=== PATIENT | male | born 1975 | race Caucasian/White ===

== ENCOUNTER 2017-01-10 07:53 | Day surgery (SDC) | payer BC ==
[2017-01-09 13:34] VITALS: BMI 41.8
[2017-01-10 08:35] LABS: URINE APPEARANCE CLEAR; URINE BILIRUBIN NEGATIVE (NEGATIVE); URINE BLOOD NEGATIVE (NEGATIVE); URINE COLOR LTYELLOW; URINE GLUCOSE (UA) NEGATIVE (NEGATIVE); URINE KETONE NEGATIVE (NEGATIVE); URINE LEUK ESTERASE NEGATIVE (NEGATIVE); URINE NITRITE NEGATIVE (NEGATIVE); URINE PROTEIN NEGATIVE (NEGATIVE); URINE UROBILINOGEN NEGATIVE E.U./dl (0.2-1.0)
--- NOTE | 2017-01-10 09:35 | HP ---
Satellite [facility] - Chief Complaint Chief Complaint: left hand mass - Past Medical History Allergies/Adverse Reactions: Allergies Allergy/AdvReac Type Severity Reaction Status Date / Time No Known Allergies Allergy Verified 01/10/17 08:43 - Current Medications Current Medications: Home Medications Medication Instructions Recorded Albuterol Sulfate Inhaler - 1 - 2 inh PO QID 01/09/17 [Ventolin HFA Inhaler -] Cetirizine HCl [Zyrtec -] 10 mg PO DAILY 01/09/17 Febuxostat [Uloric -] 80 mg PO DAILY 01/09/17 Lesinurad [Zurampic] 200 mg PO DAILY 01/09/17 Hudson-3 Acid Ethyl Esters [Lovaza] 2 gm PO DAILY 01/09/17 Pravastatin Sodium 20 mg PO HS 01/09/17 Valsartan [Diovan] 160 mg PO DAILY 01/09/17 Hydrocodone/Acetaminophen [[place]omb 1 each PO Q6H #20 tablet MDD 4 01/10/17 5-325 Tablet] Satellite Physical Exam - Physical Examination Vital Signs: Vital Signs Period Temp Pulse Resp BP Sys/Falcon Pulse Ox Last 24 Hr 97.9 F 79 18 131/82 97 General Appearance: Well Nourished, Well Developed, Alert & Oriented x3 ENT: Clear Lung: Normal air movement Heart: Regular rate & rhythm Extremities: Other (left hand- + mass, + ttp, nvi) Neurological: Intact, Alert, Oriented Satellite Impression/Plan - Impression/Plan Impression: left hand mass Operative Procedure: left hand mass excision Date to be Performed: 01/10/17
[2017-01-10] MEDS ORDERED: BUPIVACAINE HCL/PF 0.5% (5MG/ML) 10 ML VIAL ONE (09:39)
[2017-01-10] MEDS ORDERED: PROPOFOL 20 ML ONE (09:41)
[2017-01-10] MEDS ORDERED: MIDAZOLAM HCL 2 MG/2 ML SINGLE DOSE VIAL ONE (09:41)
[2017-01-10] MEDS ORDERED: LIDOCAINE HCL/PF 2% SDV 5ML VIAL ONE (09:42)
[2017-01-10] MEDS ORDERED: ceFAZolin SODIUM 1 GM VIAL ONE (09:54)
[2017-01-10] MEDS ORDERED: SODIUM CHLORIDE 0.9% P/F 10 ML VIAL IJ ONE (09:54)
[2017-01-10] MEDS ORDERED: ceFAZolin SODIUM 1 GM VIAL IVPB ONE (09:57)
[2017-01-10] MEDS ORDERED: LIDOCAINE HCL 1%, 10 MG/ML (20ML VIAL) IJ ONE (10:20)
[2017-01-10] MEDS ORDERED: BUPIVACAINE HCL/PF 0.5% (5MG/ML) 10 ML VIAL IJ ONE (10:20)
[2017-01-10] MEDS ORDERED: ONDANSETRON 4 MG/2 ML VIAL IVPUSH PRN (10:31)
[2017-01-10] MEDS ORDERED: PROMETHAZINE HCL 25 MG/1 ML VIAL IVPUSH PRN (10:31)
--- NOTE | 2017-01-10 10:32 | OP ---
Operative Note - Note: Operative Date: 01/10/17 Pre-Operative Diagnosis: left hand mass Operation: excision mass left hand Post-Operative Diagnosis: Same as Pre-op Surgeon: Grover Hong Anesthesiologist/PLASTIC PANEL INSTALLER: Benjamin Cano Anesthesia: General, Local Specimens Removed: mass left hand Estimated Blood Loss (mls): 0 Blood Volume Replaced (mls): 0 Fluid Volume Replaced (mls): 500 Operative Report Dictated: Yes
[2017-01-10] MEDS ORDERED: LACTATED RINGERS SOLUTION 1,000 ML IV SCH (10:45)
[2017-01-10 11:23] VITALS: TEMP 97.9
[2017-01-10 14:34] VITALS: BP 130/70; PULSE 80
--- NOTE | 2017-01-11 10:29 | OP ---
DATE OF OPERATION: 01/10/2017 PREOPERATIVE DIAGNOSIS: Mass, left hand. POSTOPERATIVE DIAGNOSIS: Mass, left hand. PROCEDURE: Excision mass, left hand. SURGEON: Grover Robbins MD DELIVERY CONSULTANT: None. ANESTHESIOLOGIST: Benjamin Cano MD ANESTHESIA: MAC anesthesia, local injection of 12 mL of 0.5% Marcaine with 1% lidocaine mixed. DRAINS: None. COMPLICATIONS: None. SPECIMENS: Mass, left hand. BLOOD LOSS: None. BLOOD GIVEN: None. FLUID REPLACEMENT: PlasmaLyte, 500 mL. INDICATIONS: This patient is a 41-year-old male with a preoperative diagnosis of a mass in his left hand. After understanding the potential risks, complications, alternatives, and benefits of surgical versus nonsurgical treatment, the patient elected to undergo this procedure. DESCRIPTION OF PROCEDURE: Patient was brought to the operating room. Peripheral IV was placed, IV sedation was given. One gram of IV Ancef was given. MAC anesthesia was induced. Left upper extremity was prepped and draped in sterile fashion. It was elevated and exsanguinated with an Esmarch bandage, and the tourniquet inflated to 250mm of mercury. A longitudinal incision was marked out with a marking pen. Marcaine, 12 mL of 0.5%, and 1% lidocaine mix was injected in and around the surgical incision. The incision was made with a No. 15 scalpel blade. Subcutaneous hemostasis was achieved with the bipolar cautery. Careful circumferential dissection was done with curved blunt-tipped Littler scissors around a dark purple/blood colored mass. It was about 8 mm x 8 mm, spherical, well-circumscribed. It did not invade the local tissue. There is nothing about it that looked malignant. It was from the crossing neurovascular structures. It was in the middle of the web space and frankly was far from any digital nerves. It was passed off the field as specimen, left hand mass. The area was copiously irrigated and washed out. I was not able to feel or see any abnormal tissue. The deep dermal layer was closed with 4-0 undyed Vicryl. Final skin reapproximation was done with a running subcuticular 4-0 Biosyn stitch. The area was then washed and dried, covered with Steri-Strips, 4x4s, fluffs between the fingers, Webril, and Coban. The tourniquet was taken down after a total tourniquet time of about 12 minutes. There were no complications during the case. The patient tolerated the procedure quite well and was brought to the ambulatory recovery room in stable condition. GROVER ROBBINS M.D. [id number]
--- NOTE | 2017-01-11 16:40 | PATH ---
Surgical Pathology Report Patient Name: BERTA JOHNSON Med. Rec. #: [id number] /Age/Gender: 1975 (Age: 41) / M Account: [id number] Location: [facility] Taken: 01/10/2017 Received: 01/10/2017 Reported: 01/11/2017 Physicians: Grover Hong M.D. Specimen(s) Received MASS OF LEFT HAND Clinical History Left hand mass Final Diagnosis SOFT TISSUE, LEFT HAND, MASS, EXCISION: THROMBOSED DILATED BLOOD VESSEL WITH ORGANIZING THROMBUS. Electronically Signed Minh Carrasco M.D. Gross Description Received in formalin labeled "left hand mass" is a 0.7 x 0.6 x 0.5 cm brown, encapsulated, intact mass. Sectioning reveals red-brown blood clot. The specimen is bisected and entirely submitted in one cassette. /01/10/201701/10/2017
== END 2017-01-10 12:30 | disposition home or self-care (01) ==
LOC: JASU-SURG 07:53
PROVIDERS: ATTEND Orthopaedic Surgery
PROC: 0JBK0ZZ Excision of Left Hand Subcutaneous Tissue and Fascia, Open Approach (ICD-10-PCS; principal; 2017-01-10 09:30)
DX: D21.12 Benign neoplasm of connective and other soft tissue of left upper limb, including shoulder (principal)
CPT/HCPCS: 81003; 88307-TC; 94760

== ENCOUNTER 2017-01-31 09:11 | Inpatient (IN) | payer BC ==
[2017-01-30 11:07] VITALS: BMI 41.8
[2017-01-31 09:36] LABS: URINE APPEARANCE CLEAR; URINE BILIRUBIN NEGATIVE (NEGATIVE); URINE BLOOD NEGATIVE (NEGATIVE); URINE COLOR LTYELLOW; URINE GLUCOSE (UA) NEGATIVE (NEGATIVE); URINE KETONE TRACE (NEGATIVE); URINE LEUK ESTERASE NEGATIVE (NEGATIVE); URINE NITRITE NEGATIVE (NEGATIVE); URINE PROTEIN NEGATIVE (NEGATIVE); URINE UROBILINOGEN NEGATIVE E.U./dl (0.2-1.0)
[2017-01-31] MEDS ORDERED: LIDOCAINE HCL/PF 2% SDV 5ML VIAL ONE (12:56)
[2017-01-31] MEDS ORDERED: ceFAZolin SODIUM 1 GM VIAL ONE (12:56)
[2017-01-31] MEDS ORDERED: DEXAMETHASONE SOD PHOSPHATE 4 MG/1 ML VIAL ONE (12:56)
[2017-01-31] MEDS ORDERED: KETOROLAC TROMETHAMINE 30 MG/1 ML VIAL ONE (12:56)
[2017-01-31] MEDS ORDERED: PROPOFOL 20 ML ONE ×2 (12:57→12:59)
[2017-01-31] MEDS ORDERED: SUCCINYLCHOLINE CHLORIDE 200 MG/10 ML VIAL ONE (12:57)
[2017-01-31] MEDS ORDERED: ROCURONIUM BROMIDE 50 MG/5 ML VIAL ONE (12:57)
[2017-01-31] MEDS ORDERED: ceFAZolin SODIUM 1 GM VIAL IVPB ONE (13:03)
[2017-01-31] MEDS ORDERED: NEOSTIGMINE METHYLSULFATE 0.5 MG/ML - 10 ML MDV ONE (14:26)
[2017-01-31] MEDS ORDERED: GLYCOPYRROLATE 0.2 MG/1 ML VIAL ONE ×2 (14:26)
[2017-01-31] MEDS ORDERED: BUPIVACAINE HCL/PF 0.5% (5MG/ML) 10 ML VIAL IJ ONE (14:29)
[2017-01-31] MEDS ORDERED: MIDAZOLAM HCL 2 MG/2 ML SINGLE DOSE VIAL ONE (14:43)
[2017-01-31] MEDS ORDERED: ONDANSETRON 4 MG/2 ML VIAL IVPB PRN (14:48)
[2017-01-31] MEDS ORDERED: ONDANSETRON 4 MG/2 ML VIAL IVPUSH PRN (14:49)
[2017-01-31] MEDS ORDERED: PROMETHAZINE HCL 25 MG/1 ML VIAL IVPUSH PRN (14:49)
[2017-01-31] MEDS ORDERED: oxyCODONE HCL 5 MG TABLET PO PRN (14:49)
[2017-01-31] MEDS ORDERED: METOCLOPRAMIDE HCL INJECTION 10 MG/2 ML VIAL IVPB PRN (14:50)
[2017-01-31] MEDS ORDERED: SODIUM CHLORIDE 1,000 ML IV SCH (15:00)
--- NOTE | 2017-01-31 15:08 | HP ---
DATE OF ADMISSION: 01/31/2017 CHIEF COMPLAINT: Morbid obesity. HISTORY OF PRESENT ILLNESS: This gentleman is a 41-year-old gentleman with a history of morbid obesity for many years despite multiple attempts at dietary weight loss. He received nutrition, psychological, and medical clearances prior to undergoing elective laparoscopic sleeve gastrectomy surgery. PAST MEDICAL HISTORY: Significant for hypertension, significant for hypercholesterolemia, and also for gout. PRIOR SURGICAL HISTORY: Includes removal of a cyst in his hand and also oral surgery. ALLERGIES: The patient has no known allergies. MEDICATIONS: Include Diovan. It includes pravastatin. It includes Zyrtec and Lovaza. REVIEW OF SYMPTOMS: Neurologic: Patient's neurologic symptoms within normal limits. Gastrointestinal: No heartburn. No nausea and vomiting. Pulmonary: No wheezing. No shortness of breath. Cardiovascular: Within normal limits. Musculoskeletal: Within normal limits. PHYSICAL EXAMINATION: General: Awake, alert. No acute distress. HEENT: No masses palpated. Lungs: Clear bilaterally. Heart: Regular sinus rhythm. Abdomen: Noted for obesity but soft, nontender on palpation. Extremities: No edema. No decreased range of motion noted. LABORATORY VALUES: Essentially normal except for elevated liver function tests preoperatively which include the SGPT being 84 with normal 10-49 and AST being 52 with normal 17-34. IMPRESSION: 1. Morbid obesity. 2. Elevated liver function tests. 3. Hypertension. PLAN: The OR for laparoscopic vertical sleeve gastrectomy. SHANAE PINA M.D. [id number]
--- NOTE | 2017-01-31 15:21 | OP ---
DATE OF OPERATION: 01/31/2017 PREOPERATIVE DIAGNOSES: 1. Morbid obesity. 2. Elevated liver function tests. 3. Hypertension. POSTOPERATIVE DIAGNOSES: 1. Morbid obesity. 2. Elevated liver function tests. 3. Hypertension. 4. Hepatomegaly. PROCEDURE PERFORMED: 1. Laparoscopic vertical sleeve gastrectomy. 2. Wedge biopsy of the left lobe of liver. 3. Diagnostic laparoscopy. OPERATING SURGEON: Gagan Pino MD DIRECTOR OF EXHIBITS: Braydon Sigala MD ANESTHESIA: General. EXPECTED BLOOD LOSS: 30 mL DISPOSITION: Patient transferred to recovery room in stable condition. OPERATIVE PROCEDURE: The patient was brought into the operating room and placed on the OR table in the supine position. All precautions were taken initially including padding for the back and the feet, and Venodyne boots were placed on both lower extremities. At that point, the abdomen was prepped and draped in the usual manner. A Veress needle was placed in the left upper quadrant, and a pneumoperitoneum was established. A number-12 bladeless trocar was placed in the left upper quadrant. Through that trocar, a laparoscopic camera was placed. Under direct vision, a number-15 bladeless trocar was placed in the midline in a supraumbilical position, followed by a number-5 bladeless trocar in the right upper quadrant and number-5 bladeless trocar below the left costal margin. A Mary liver retractor was then placed in the epigastrium to retract the left lobe of the liver. The left lobe was extremely enlarged, and combined with the patient's elevated liver function tests, it was decided that a wedge biopsy would be performed. With the electrocautery turned high, the electrocautery was then used to score the liver capsule on the edge of the inferior portion of the left lobe of the liver. Once the capsule was scored, dissection continued through the parenchyma and in the portion of the lobe which was the wedge biopsy was then removed from the liver and sent off the field to Pathology as a specimen. There was some minor bleeding from the parenchyma of the liver which was easily controlled with electrocautery. Attention was now directed to the distal stomach where the pylorus was found. Next, 6 cm were measured from this area proximally, and here, on the greater curve, the operating surgeon lifted the stomach toward the anterior abdominal wall as the assistant brand manager surgeon retracted the gastrocolic ligament inferiorly. The LigaSure device was used to dissect the gastrocolic ligament off the greater curve of the stomach. This continued in a superior and vertical direction as the assistant brand manager continued to retract the gastrocolic and then the omentum away from the stomach as the operating surgeon used the LigaSure to dissect the vessels. This continued until the final short gastric vessel between the superior pole of the spleen and the proximal fundus was divided. At this juncture, Anesthesia passed a number 40 bougie. With the bougie held along the lesser curvature, a series of allan were performed with the first two being black-load allan 6 cm in length along the bougie. This was followed by a series of purple-load allan that continued along the bougie until a final staple was fired in the left upper quadrant, and the greater curve was now completely detached from the lesser curve. It should be noted that prior to firing each stapler, both the anterior and posterior joaquin were checked that they were equal and also an area of the esophagogastric junction approximately 1 cm of serosa remained on the anterior and posterior surfaces. At this juncture, saline was placed around the staple line, and Anesthesia inserted air into the bougie, which showed the entire stomach distended to the pylorus. No obstruction and no leaks were noted. At this point, the resected greater curve was removed through the No. 15 trocar site in the midline, sent off the field as a specimen to Pathology. Under direct vision, the No. 15 and 12 trocar sites were closed with Endoclose device to prevent internal hernia and prevent bleeding. Under direct vision, all trocars were removed. The pneumoperitoneum was released. All trocar sites then received 0.25% Marcaine, were closed with 4-0 Biosyn in subcuticular fashion. Dressings were applied. Patient awoke from anesthesia and transferred out of the operating room to the recovery room in stable condition. Scott [id number]
[2017-01-31 15:44] LABS: MCH 28.9 pg (25.7-33.7); MCHC 33.1 g/dl (32.0-35.9); MEAN CELL VOLUME 87.3 fl (80-96); MEAN PLT VOLUME 9.8 fl (7.5-11.1); PLATELET COUNT 162 K/MM3 (134-434); RDW 13.5 % (11.9-15.9); WHITE BLOOD COUNT 8.7 K/mm3 (4.0-10.0)
[2017-01-31 16:16] LABS: ALK PHOS 126 U/L (45-117); ANION GAP 8 (8-16); BILIRUBIN,TOTAL 0.5 mg/dL (0.2-1.0); CALCIUM 9.1 mg/dL (8.5-10.1); CO2 26 mmol/L (21-32); CREATININE 1.3 mg/dL (0.7-1.3); GLUCOSE,RANDOM 105 mg/dL (74-106); SGOT/AST 62 U/L (15-37); SGPT/ALT 104 U/L (12-78); TOT PROT 7.3 g/dl (6.4-8.2)
[2017-01-31] MEDS: HYDROmorphone HCL CARPU-JECT 1 MG/1 ML DISP.SYRIN IVPB PRN (17:29)
[2017-01-31] MEDS: FAMOTIDINE 20 MG/50 ML IVPB 50 ML IVPB SCH (22:10)
[2017-01-31] MEDS: ENOXAPARIN NA (PORCINE) 40 MG/0.4 ML DISP.SYRIN SQ SCH (22:10)
[2017-02-01] MEDS: HYDROmorphone HCL CARPU-JECT 1 MG/1 ML DISP.SYRIN IVPB PRN (04:09)
[2017-02-01 07:39] LABS: MCH 29.6 pg (25.7-33.7); MCHC 34.1 g/dl (32.0-35.9); MEAN CELL VOLUME 86.8 fl (80-96); MEAN PLT VOLUME 10.1 fl (7.5-11.1); PLATELET COUNT 172 K/MM3 (134-434); RDW 13.7 % (11.9-15.9); WHITE BLOOD COUNT 10.1 K/mm3 (4.0-10.0)
[2017-02-01 08:33] LABS: ALBUMIN 3.7 g/dl (3.4-5.0); ANION GAP 9 (8-16); CALCIUM 8.8 mg/dL (8.5-10.1); CO2 27 mmol/L (21-32); GLUCOSE,RANDOM 88 mg/dL (74-106)
[2017-02-01 08:39] LABS: ALK PHOS 116 U/L (45-117); BILIRUBIN,TOTAL 0.7 mg/dL (0.2-1.0); CREATININE 1.1 mg/dL (0.7-1.3); SGOT/AST 59 U/L (15-37); SGPT/ALT 99 U/L (12-78); TOT PROT 6.9 g/dl (6.4-8.2)
[2017-02-01] MEDS: FAMOTIDINE 20 MG/50 ML IVPB 50 ML IVPB SCH (10:29)
[2017-02-01] MEDS: ENOXAPARIN NA (PORCINE) 40 MG/0.4 ML DISP.SYRIN SQ SCH (10:29)
[2017-02-01] MEDS ORDERED: OXYCODONE/APAP 5/325MG COMBO TABLET PO PRN (11:01)
[2017-02-01] MEDS ORDERED: ACETAMINOPHEN 325 MG TABLET (FP) PO PRN (11:05)
[2017-02-01] MEDS ORDERED: oxyCODONE HCL 5 MG TABLET PO PRN (11:05)
--- NOTE | 2017-02-01 11:44 | PN ---
Progress Note (short form) - Note Progress Note: Anesthesia Postop Note Patient is a 41 yo M POD1 Gastric Sleeve. VSS, labs stable. Patient is walking, comfortable. No anesthesia complications. Continue plan per surgical team. Gemini Ann MD Anesthesiology
--- NOTE | 2017-02-01 14:21 | PN ---
Progress Note (short form) - Note Progress Note: POD#1 Afebrile;VSS P50-65 BP- 141/84 Pt tolerating PO clear l;iquids - 2oz po TID No N/V UGI- no leak, no obstruction WBC-10.1 H/H-13.6/39.8 P- D/C pt home F/U in office in 6 days
[2017-02-01 14:56] VITALS: TEMP 98.6
[2017-02-01 15:14] VITALS: BP 155/75; PULSE 65
--- NOTE | 2017-02-06 10:01 | PATH ---
Surgical Pathology Report Patient Name: BERTA JOHNSON Med. Rec. #: [id number] /Age/Gender: 1975 (Age: 41) / M Account: [id number] Location: 4 W TELEMETRY U Taken: 01/31/2017 Received: 02/01/2017 Reported: 02/06/2017 Physicians: Gagan Pino M.D. Specimen(s) Received A: GREATER CURVATURE OF STOMACH B: LIVER BIOPSY Clinical History Morbid obesity Final Diagnosis A. STOMACH, GREATER CURVATURE, LAPAROSCOPIC VERTICAL SLEEVE GASTRECTOMY: PORTION OF STOMACH WITH PATCHY MILD CHRONIC GASTRITIS. IMMUNOSTAIN FOR H. PYLORI IS NEGATIVE FOR ORGANISMS. B. 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 PERIVENULAR, FOCAL PERISINUSOIDAL, PORTAL AND PERIPORTAL FIBROSIS (LIMITED FIBROSIS ASSESSMENT DUE TO SUBCAPSULAR NATURE OF THE SPECIMEN). SEE COMMENT. Comment: Although the assessment of fibrosis is limited in the subcapsular tissue, the liver architecture appears largely preserved. The portal tracts show patchy inflammation comprised of lymphocytes and histiocytes with scattered eosinophils and neutrophils. Plasma cells are infrequent. No interface activity is seen. No bile duct injury is noted, focal ductular proliferation is seen. No portal granulomas are present. The lobules show patchy inflammation comprised of lymphocytes, scattered neutrophils and eosinophils. Occasional acidophil bodies are present. Focal mild hepatocyte ballooning is seen. No definitive Ashley hyalin is identified. No lobular granulomas are present. There is predominantly macrovesicular steatosis present in approximately 75% of the biopsy material. Trichrome stain highlights perivenular, focal perisinusoidal, portal and periportal fibrosis. Iron stain shows no siderosis. Overall, the findings of steatohepatitis with mild to moderate activity and steatosis (~75%). While the assessment of fibrosis is limited in subcapsular specimens, perivenular, perisinusoidal, portal and periportal fibrosis is seen (stage 2 of 4). The etiology of steatosis and steatohepatitis include alcohol and non-alcohol induced liver injury, such as drug/toxin injury and metabolic conditions. Clinical and serological correlations are suggested. Electronically Signed Minh Carrasco M.D. Gross Description A. Received in formalin, labeled "greater curvature of stomach" is a 130 gram, 20.0 x 4.3 x 3.8 cm. portion of stomach with a stapled margin of resection. The serosa is daley-lynn with minimal attached fat. The mucosa is daley-pink with normal folds. No mucosal masses are identified. Fire Protection Inspector sections are submitted in one cassette. B. Received in formalin labeled "liver biopsy" is a 1.8 x 0.9 x 0.7 cm daley, irregular portion of soft tissue, consistent with a liver biopsy. The specimen is trisected and entirely submitted in one cassette. 02/01/2017 [facility]02/01/2017
== END 2017-02-01 15:31 | disposition home or self-care (01) | DRG 621 ==
LOC: JSAMEDAYSX 09:11 → EDSTATUS 10:26 → J4W 16:46
PROVIDERS: ADMIT Surgery; ATTEND Surgery
PROC: 0FB24ZX Excision of Left Lobe Liver, Percutaneous Endoscopic Approach, Diagnostic (ICD-10-PCS; 2017-01-31)
PROC: 0DB64Z3 Excision of Stomach, Percutaneous Endoscopic Approach, Vertical (ICD-10-PCS; principal; 2017-01-31 12:00)
DX: E66.01 Morbid (severe) obesity due to excess calories (principal); Z68.41 Body mass index [BMI] 40.0-44.9, adult; R16.0 Hepatomegaly, not elsewhere classified; I10 Essential (primary) hypertension; R79.89 Other specified abnormal findings of blood chemistry
CPT/HCPCS: 36415; 74241-TC; 80053; 81003; 85027; 86850; 86900; 86901; 88305-TC; 88307-TC; 94760